=== PATIENT | male | born 1945 | race Caucasian/White ===

== ENCOUNTER → 2016-12-18 | Day surgery (SDC) | payer OTHER ==
[~2016-12-18] MED LIST: BUPIVACAINE/EPINEPHRINE 0.5% PF 30 ML VIAL ONE; EPINEPHrine HCL (1:1000) 30 MG/30 ML VIAL ONE; LACTATED RINGER'S 1000 ML INJ 1,000 ML ONE; MIDAZOLAM HCL 2 MG/2 ML VIAL ONE; ONDANSETRON HCL 4 MG/2 ML VIAL IV PUSH ONE; PROPOFOL 200 MG/20 ML AMP IV ONE; TRIAMCINOLONE ACETONIDE 40 MG/ML VIAL ONE; ceFAZolin INJ 1,000 MG VIAL ONE
--- NOTE | 2016-12-19 18:55 | MP ---
cc: SEAN CAZARES M.D. DATE OF SURGERY: 12/18/2016 PREOPERATIVE DIAGNOSIS: Left knee medial and lateral meniscus tear. POSTOPERATIVE DIAGNOSES Left knee medial and lateral meniscus tear. OPERATIVE PROCEDURE PERFORMED: Left knee arthroscopic partial medial and lateral meniscectomy. SURGEON: Dr. Sean Cazares ANESTHESIA: General. ESTIMATED BLOOD LOSS: Less than 10 cc. TOURNIQUET TIME: Zero minutes. COMPLICATIONS: None. JUSTIFICATION FOR THE PROCEDURE: The patient is 71-year male who injured HIS left knee. He has had persistent symptoms of pain, and swelling in regards to his condition. He has failed conservative treatments. The clinical exam as well as MRI confirmed the above-named findings. The patient counseled as to the risks, benefits and alternatives of the above-named proposed surgical procedure. He did wish to proceed with surgery. DESCRIPTION OF THE PROCEDURE IN DETAIL: A written consent was obtained. The patient was identified by name and taken to the operating room and placed supine on the supine on the operating table. General anesthesia was administered as well as 1 gram of IV Ancef. The left thigh was carefully placed in a well-padded leg rios. The left lower extremity was prepped and draped using isopropyl alcohol, Hibiclens solution and DuraPrep solution. After an appropriate time-out was performed, a standard medial and lateral parapatellar portal was established. The patellofemoral joint revealed grade 2 chondromalacia. The ____ revealed a large complex tear of the yard conductor horn of the medial meniscus. An arthroscopic biter followed by an arthroscopic shaver was introduced into the medial compartment to perform a partial meniscectomy. The meniscus was probed and noted be stable. The medial femoral condyle revealed diffuse grade 3 chondromalacia and the medial tibial plateau had a area of focal grade 4 chondromalacia along the far medial aspect. The intercondylar notch revealed the anterior and posterior cruciate ligaments to be intact. The lateral compartment did reveal significant degenerative tearing along the inner edge mid bilateral meniscus extending into the anterior and posterior horns. An arthroscopic biter followed by an arthroscopic shaver was introduced into the lateral compartment to perform partial lateral meniscectomy. The meniscal rim was probed and noted to be stable after meniscectomy. There was an area of focal grade 2 chondromalacia at the midportion of the lateral femoral condyle. The shaver was introduced into the anterior patellofemoral compartment. A chondroplasty along the undersurface of the patella was performed. At the conclusion of the surgical procedure, 30 mL of 0.5% Marcaine with epinephrine was injected into the knee joint mixed with 40 mg of Kenalog. The arthroscopic portals were closed with 3-0 Prolene suture. Sterile dressings were applied. The patient tolerated the procedure well with no intraoperative noted. MD RJ Luz/JAILYN /2:18 PM /6:46 PM
== END | disposition home or self-care (01) ==
LOC: ESDC 12:03
PROVIDERS: ATTEND Orthopaedic Surgery Sports Medicine
DX: S83.232A Complex tear of medial meniscus, current injury, left knee, initial encounter (principal); S83.282A Other tear of lateral meniscus, current injury, left knee, initial encounter
CPT/HCPCS: 01400; 29880; J0171; J0690; J2250; J2405; J3010; J3301; J7120